=== PATIENT | male | born 1970 | race Caucasian/White ===

== ENCOUNTER 2023-04-25 06:23 | Emergency (ER) | payer BC, SELFPAY ==
[2023-04-25 06:34] VITALS: BP 149/94; PULSE 59; RESP 18; TEMP 36.5; O2SAT 96; BMI 27.2
--- NOTE | 2023-04-25 06:36 | CTR_ITS ---
PROCEDURE INFORMATION: Exam: CT Abdomen And Pelvis Without Contrast Exam date and time: 04/25/2023 6:55 AM Age: 53 years old Clinical indication: Abdominal pain; Localized; Lower; Additional info: Abd pain TECHNIQUE: Imaging protocol: Computed tomography of the abdomen and pelvis without contrast. Radiation optimization: All CT scans at this facility use at least one of these dose optimization techniques: automated exposure control; mA and/or kV adjustment per patient size (includes targeted exams where dose is matched to clinical indication); or iterative reconstruction. REPORTING DATA: Count of CT and Cardiac NM exams in prior 12 months: This patient has received 0 known CTs and 0 known cardiac nuclear medicine studies in the 12 months prior to the current study. COMPARISON: No relevant prior studies available. RADIATION DOSE METRICS: Total DLP (mGy-cm): 658.93 FINDINGS: Detailed evaluation of the abdominal and pelvic viscera is somewhat limited in the absence of intravenous contrast. Inferior thorax: Mild interstitial prominence. 2 and 3 mm left lower lobe nodules. For patients at low risk (minimal or absent history of smoking and of other known risk factors), no routine follow-up is indicated. For patients at high risk (history of smoking or of other known risk factors), consider optional CT Chest at 12 months. (Reference: Carlo). Small hiatal hernia. Liver: Fatty infiltration of the liver. Gallbladder and bile ducts: High attenuation bile and calculi in the gallbladder. Pancreas: No pancreatic mass or ductal dilatation. Spleen: No splenomegaly. Adrenal glands: Unremarkable adrenals. Kidneys and ureters: 2 mm nonobstructing left renal calculus. Additional 10 mm nodular hypodensity with posterior wall calcification in the posterior left kidney. Stomach and bowel: Diverticula, without pericolonic inflammation. Appendix: No acute appendicitis. Intraperitoneal space: No significant free fluid. Vasculature: Normal caliber of the abdominal aorta. Pelvic vascular calcifications. Lymph nodes: Subcentimeter lymph nodes. Urinary bladder: Normal bladder morphology. Reproductive: Unremarkable as visualized. Bones/joints: No acute osseous pathology. Soft tissues: Unremarkable. CT/CT kidney stone [id number] IMPRESSION: 1. High attenuation bile and calculi in the gallbladder. 2. 2 mm nonobstructing left renal calculus. 3. Additional findings as described above. COMMENTS: Consistent with the [employer]'s Incidental Findings Committee white paper (J Am Luann Radiol 2018): Any incidental renal lesion less than 1 cm or classified as too small to characterize, or any incidental cystic renal lesion characterized as simple-appearing, is likely benign. No follow-up imaging is recommended for these lesions per consensus recommendations based on imaging criteria.
--- NOTE | 2023-04-25 06:36 | W.ED.ABDPA2 ---
HPI - Abdominal Pain General: Chief Complaint: Abdominal Pain Stated Complaint: abd pain Time Seen by Provider: 04/25/23 06:32 Source: patient Mode of arrival: ambulatory Limitations: no limitations History of Present Illness: 53-year-old male states he woke up 130 with severe abdominal pain he states the pain is lower diffuse. He denies any worsening improving factors he states is not worse with palpation or movement. Denies any dysuria denies any vomiting. He drinks occasionally not a daily drinker no history of any of any abdominal issues or kidney stones. Associated Symptoms: Denies chills, diarrhea, dysuria, fever(s), nausea and vomiting Review of Systems Const: Denies: fever(s), chills, body aches or change in appetite Eyes: Denies: blurry vision or eye discomfort ENMT: Denies: throat pain or dental pain Card: Denies: chest pain Resp: Denies: dyspnea GI: Reports: abdominal pain; Denies: nausea, vomiting or diarrhea : Denies: dysuria Musc: Denies: neck pain or back pain Neuro: Denies: headache(s) Physical Exam Const: COMMON NORMALS: patient oriented x3 and healthy appearing HENMT: COMMON NORMALS: normocephalic and atraumatic HEAD & SCALP: normocephalic and atraumatic Eye: COMMON NORMALS: Equal, round and reactive pupils present and EOMs intact bilaterally PUPIL: Yes Equal, round and reactive pupils present Neck/C-Spine: COMMON NORMALS: full ROM and supple Chest: COMMONS NORMALS: normal inspection of the chest and normal palpation of entire chest wall Resp: COMMON NORMALS: normal respiratory effort, No retractions, No use of accessory muscles and clear to auscultation bilaterally AUSCULTATION: clear to auscultation bilaterally Cardio: COMMON NORMALS: regular rate, regular rhythm and No murmurs present (Cardio) RATE: regular rate RHYTHM: regular rhythm GI: COMMON NORMALS: Normal to inspection, nondistended, normoactive bowel sounds present, Soft to palpation, non-tender and no masses PALPATION: Yes Soft to palpation Extremity: COMMON NORMALS: normal to inspection and full ROM Neuro: COMMON NORMALS: patient oriented x3, moves all extremities and no focal motor deficits Psych: COMMON NORMALS: mental status grossly normal, Normal thought process present and cooperative THOUGHT PROCESS: Normal thought process present Skin: COMMON NORMALS: no rashes or lesions noted and no wounds GENERAL SKIN EXAM: no rashes or lesions noted Course Vital Signs: Vital signs: Vital Signs Temperature 97.7 F 04/25/23 06:34 Pulse Rate 59 L 04/25/23 06:34 Respiratory Rate 20 H 04/25/23 06:42 Blood Pressure 149/94 04/25/23 06:34 Pulse Oximetry 96 04/25/23 06:34 Oxygen Delivery Me thod Room Air 04/25/23 06:34 MDM - Abdominal Pain Medical Decision Making Patient presents here with abdominal pain is since improved his abdominal exam here is benign no tenderness CT scan showed no acute findings blood works normal he does have gallstones no signs of cholecystitis I spoke to surgeon he is to follow-up with a surgeon will prescribe him pain meds and nausea medicines he is return if worsening he understands agrees to plan. Medical Records I reviewed the patient's medical records. Lab Data I reviewed the patient's lab results. 04/25/23 06:32 04/25/23 06:32 Labs/Radiology: Radiology Impressions Abdomen/Pelvis CT 04/25/23 06:36 IMPRESSION: 1. High attenuation bile and calculi in the gallbladder. 2. 2 mm nonobstructing left renal calculus. 3. Additional findings as described above. COMMENTS: Consistent with the [employer]'s Incidental Findings Committee white paper (J Am Luann Radiol 2018): Any incidental renal lesion less than 1 cm or classified as too small to characterize, or any incidental cystic renal lesion characterized as simple-appearing, is likely benign. No follow-up imaging is recommended for these lesions per consensus recommendations based on imaging criteria. Gallbladder Ultrasound 04/25/23 07:42 IMPRESSION: 1. Fatty infiltration of the liver and focal sparing. 2. Extensive echogenic bile in the gallbladder, along with shadowing calculi. Laboratory Results WBC 8.78 10^3/uL (3.29-11.43) 04/25/23 06:32 RBC 6.19 10^6/uL (3.85-5.65) H 04/25/23 06:32 Hgb 16.30 g/dL (11.27-16.99) 04/25/23 06:32 Hct 50.4 % (37-53) 04/25/23 06:32 MCV 81.4 fl (82-101) L 04/25/23 06:32 MCH 26.3 pg (27-33) L 04/25/23 06:32 MCHC 32.3 g/dL (30-55) 04/25/23 06:32 RDW 13.3 % (12.1-15.1) 04/25/23 06:32 Plt Count 160 10^3/cmm (157-399) 04/25/23 06:32 MPV 10.9 fL (7.4-10.4) H 04/25/23 06:32 Neut % (Auto) 85.1 % 04/25/23 06:32 Lymph % (Auto) 8.5 % 04/25/23 06:32 Owen % (Auto) 4.9 % 04/25/23 06:32 Eos % (Auto) 0.7 % 04/25/23 06:32 Baso % (Auto) 0.5 % 04/25/23 06:32 Neut # (Auto) 7.47 10^3/uL (1.8-7.7) 04/25/23 06:32 Lymph # (Auto) 0.8 10^3/uL (0.8-4.8) 04/25/23 06:32 Owen # (Auto) 0.4 10^3/uL (0.2-0.9) 04/25/23 06:32 Eos # (Auto) 0.1 10^3/uL (0.0-0.8) 04/25/23 06:32 Baso # (Auto) 0.0 10^3/uL (0.0-0.1) 04/25/23 06:32 Nucleated RBC % (auto) 0 % 04/25/23 06:32 Nucleated RBCs # 0.0 /100WBC 04/25/23 06:32 Sodium 141 mmol/L (136-145) 04/25/23 06:32 Potassium 3.7 mmol/L (3.5-5.1) 04/25/23 06:32 Chloride 104 mmol/L (98-107) 04/25/23 06:32 Carbon Dioxide 23 mmol/L (22-29) 04/25/23 06:32 Anion Gap 17.7 (5-19) 04/25/23 06:32 BUN 13 mg/dL (6-20) 04/25/23 06:32 Creatinine 0.9 mg/dL (0.7-1.2) 04/25/23 06:32 GFR Calculation 89.0 mL/min (90-130) L 04/25/23 06:32 Glucose 122 mg/dL (65-115) H 04/25/23 06:32 Calculated Osmolality 293 mOsm/kg (285-295) 04/25/23 06:32 Calcium 9.4 mg/dL (8.5-10.5) 04/25/23 06:32 Total Bilirubin 0.6 mg/dL (0.15-1.2) 04/25/23 06:32 AST 21 U/L (0-40) 04/25/23 06:32 ALT 19 U/L (0-41) 04/25/23 06:32 Alkaline Phosphatase 69 U/L (40-130) 04/25/23 06:32 Total Protein 7.6 g/dL (6.6-8.7) 04/25/23 06:32 Albumin 4.9 g/dL (3.5-5.2) 04/25/23 06:32 Globulin 2.7 g/dL (1.3-4.6) 04/25/23 06:32 Lipase 35 U/L (13-60) 04/25/23 06:32 Urine Color Yellow (Yellow) 04/25/23 07:10 Urine Appearance Clear (CLEAR) 04/25/23 07:10 Urine pH 8 (5-7) H 04/25/23 07:10 Ur Specific [place] 1.010 (1.005-1.030) 04/25/23 07:10 Urine Protein Neg (Negative) 04/25/23 07:10 Urine Glucose (UA) Norm (Normal) 04/25/23 07:10 Urine Ketones 1+ (Negative) H 04/25/23 07:10 Urine Blood Neg (Negative) 04/25/23 07:10 Urine Nitrate Negative (Negative) 04/25/23 07:10 Urine Bilirubin Neg (Negative) 04/25/23 07:10 Prot Sulfosalicylic Acd Negative (Negative) 04/25/23 07:10 Urine Urobilinogen Norm mg/dL (Negative) 04/25/23 07:10 Ur Leukocyte Esterase Negative (Negative) 04/25/23 07:10 Discharge Plan Discharge Patient Disposition: Home Clinical Impression: Abdominal pain, Gallstones Condition: Stable Prescriptions: New hydrocodone-acetaminophen 5-325 mg tablet 1 tab PO Q6H PRN (Reason: pain) Qty: 14 0RF ondansetron 4 mg tablet,disintegrating 4 mg PO Q6H PRN (Reason: nausea and vomiting) Qty: 14 0RF No Action propranolol 60 mg capsule,extended release 24 hr 60 mg PO DAILY Vitamin E-400 268 mg (400 unit) Capsule See Rx Instructions .ROUTE .COMPLEX Rx Instructions: 268 mg (400 units) orally 4 days per week Fish Oil 60-90-500 mg Capsule See Rx Instructions .ROUTE .COMPLEX Rx Instructions: 1 cap orally 4 days per week Discharge Orders: Discharge ED (Routine); Ordered 04/25/23 Ordered By: Radha Jones Referrals: Torito Edwards DO [Physician] - 1-3 days Discharge Diet: Advance as tolerated Discharge Activity: Resume usual activity Patient Instructions: Abdominal Pain (ED), Opioid Safety, Pain Management Coding Level of Care Code ED Field Administrative Assistant for Eric Garcia
[2023-04-25 06:42] VITALS: RESP 20
[2023-04-25] MEDS: HYDROmorphone 1 mg/mL INJ 1 mL IVP ×2 (06:42→08:17)
[2023-04-25] MEDS: sodium chloride 0.9% 1,000 ML 999 ML IV (06:42)
[2023-04-25] MEDS: ondansetron 2 mg/ML SDV 2 mL 4 MG IVP (06:42)
[2023-04-25 06:43] LABS: Basophils % 0.5 %; Eosinophils # 0.1 10^3/uL (0.0-0.8); Eosinophils % 0.7 %; Hematocrit 50.4 % (37-53); Lymphocytes # 0.8 10^3/uL (0.8-4.8); Lymphocytes % 8.5 %; Mean Corpuscular HGB Conc 32.3 g/dL (30-55); Mean Corpuscular Hemoglobin 26.3 pg (27-33); Mean Corpuscular Volume 81.4 fl (82-101); Mean Platelet Volume 10.9 fL (7.4-10.4); Monocytes # 0.4 10^3/uL (0.2-0.9); Monocytes % 4.9 %; Neutrophils # 7.47 10^3/uL (1.8-7.7); Neutrophils % 85.1 %; Nucleated Red Blood Cells % 0 %; Platelet Count 160 10^3/cmm (157-399); Red Blood Count 6.19 10^6/uL (3.85-5.65); Red Cell Distribution Width 13.3 % (12.1-15.1); White Blood Count 8.78 10^3/uL (3.29-11.43)
[2023-04-25 07:10] LABS: Alanine Aminotransferase 19 U/L (0-41); Albumin Level 4.9 g/dL (3.5-5.2); Alkaline Phosphatase 69 U/L (40-130); Anion Gap 17.7 (5-19); Aspartate Amino Transferase 21 U/L (0-40); Blood Urea Nitrogen 13 mg/dL (6-20); Calcium 9.4 mg/dL (8.5-10.5); Carbon Dioxide 23 mmol/L (22-29); Chloride 104 mmol/L (98-107); Globulin 2.7 g/dL (1.3-4.6); Glucose 122 mg/dL (65-115); Lipase 35 U/L (13-60); Osmolality Calculated 293 mOsm/kg (285-295); Potassium 3.7 mmol/L (3.5-5.1); Sodium 141 mmol/L (136-145); Total Bilirubin 0.6 mg/dL (0.15-1.2); Total Protein 7.6 g/dL (6.6-8.7)
[2023-04-25 07:18] LABS: Add Urine Microscopic? NO; Charge for UA Resulting for Rev
--- NOTE | 2023-04-25 07:42 | USR_ITS ---
PROCEDURE INFORMATION: Exam: US Abdomen, Limited; Right Upper Quadrant Exam date and time: 04/25/2023 7:49 AM Age: 53 years old Clinical indication: Abdominal pain; Acute; Additional info: Abd pain TECHNIQUE: Imaging protocol: Real time ultrasound of the abdomen with image documentation. Limited exam focused on the right upper quadrant. COMPARISON: CT kidney stone [id number] 04/25/2023 6:55 AM FINDINGS: Liver: Fatty infiltration of the liver and focal sparing. Gallbladder: Extensive echogenic bile in the gallbladder, along with shadowing calculi. Assessment of a sonographic Looney sign was not reported by the scanning technologist. Biliary ducts: Normal caliber of the incompletely visualized common bile duct measuring 4 mm in diameter. Pancreas: Inhomogeneous echotexture in the incompletely visualized pancreas which is partially obscured by bowel gas. Right kidney: Normal right renal morphology. No hydronephrosis. Aorta: Normal caliber of the visualized abdominal aorta. US/US gall bladder [id number] IMPRESSION: 1. Fatty infiltration of the liver and focal sparing. 2. Extensive echogenic bile in the gallbladder, along with shadowing calculi.
[2023-04-25 07:45] LABS: Bilirubin Urine Neg (Negative); Blood Urine Neg (Negative); Glucose Urine UA Norm (Normal); Ketones Urine 1+ (Negative); Leukocyte Esterase Urine Negative (Negative); Nitrate Urine Negative (Negative); Protein Urine Neg (Negative); Sulfosalicylic Acid Urine Negative (Negative); Urine Appearance Clear (CLEAR); Urine Color Yellow (Yellow); Urobilinogen Urine Norm (Negative); pH Urine 8 (5-7)
--- NOTE | 2023-04-26 10:38 | DCPLANNER ---
Addendum entered by Melissa More 04/29/23 14:38: manager battery received the following message from general surgery regarding follow up appointment: Pt was not from this area and is being treated closer to home. Original Note: manager battery had message to schedule a follow up appointment for patient with general surgery. manager battery sent patients information to the front office staff at general surgery. Patients information will be printed and reviewed. Clinic will call patient with appointment information.
== END 2023-04-25 08:46 | disposition home or self-care (01) ==
PROVIDERS: Emergency Provider Emergency Medicine
DX: K80.20 Calculus of gallbladder without cholecystitis without obstruction (principal)
CPT/HCPCS: 74176; 76705; 80053; 81003; 83690; 85025; 96361; 96374; 96375; 96376; 99285; J1170; J2405; J7030